=== PATIENT | male | born 1935 | race Caucasian/White ===

== ENCOUNTER 2021-02-22 01:11 | Inpatient (IN) | payer MEDICARE, OTHER ==
[~2021-02-22] VITALS: Ht 182.9 cm; Wt 99.0 kg
[2021-02-22 02:35] LABS: Basophils # (auto) 0 10 ^3/uL (0-0.2); Basophils % (auto) 0.2 % (0.0-2.0); Eosinophils # (auto) 0.2 10 ^3/uL (0-0.8); Eosinophils % (auto) 2.1 % (0.0-7.0); Hematocrit 37.1 % (41.0-53.0); Hemoglobin 12.4 g/dL (13.5-17.5); Lymphocytes # (auto) 2.2 10 ^3/uL (0.4-5.4); Lymphocytes % (auto) 22.3 % (10.0-50.0); Mean Corpuscular Hemoglobin 32.1 pg (28.0-32.0); Mean Corpuscular Hgb Conc. 33.5 g/dL (32.0-36.0); Mean Corpuscular Volume 95.6 fL (80.0-100.0); Monocytes # (auto) 0.7 10 ^3/uL (0-1.3); Monocytes % (auto) 7.4 % (0.0-12.0); Neutrophils # (auto) 6.8 10 ^3/uL (1.6-8.6); Platelet Count (auto) 187 10^3/uL (140-450); Red Blood Cells 3.88 10^6/uL (4.5-5.90); Red Cell Distribution Width 14.4 % (11.8-14.3)
[2021-02-22 02:50] LABS: INR 1.02 (0.9-1.15); Partial Thromboplastin Time 24.8 sec (23.0-31.2)
[2021-02-22 02:56] LABS: Alanine Aminotransferase 16 U/L (16-61); Albumin 2.6 g/dL (3.4-5.0); Anion Gap 12 (5-15); Aspartate Aminotransferase 16 U/L (15-37); BUN/Creatinine Ratio 12.6; Blood Alcohol < 3.0 mg/dL (0-5); Blood Urea Nitrogen 13 mg/dL (7-18); Calcium 7.2 mg/dL (8.5-10.1); Carbon Dioxide 17 mmol/L (21-32); Chloride 113 mmol/L (98-107); GFR African American 88 mL/min; GFR Non-African American 73 mL/min; Glucose 105 mg/dL (74-106); Magnesium 2.2 mg/dL (1.6-2.6); Potassium 3.5 mmol/L (3.5-5.1); Sodium 142 mmol/L (136-145)
[2021-02-22 03:09] LABS: Lactic Acid w/Reflex 6.8 mmol/L (0.4-2.0)
[2021-02-22 03:14] LABS: Alkaline Phosphatase 86 U/L (45-117); Bilirubin, Total 0.1 mg/dL (0.2-1.0)
[2021-02-22] MEDS ORDERED: PIPERACILLIN-TAZOB 3.375GM 100 ML IV ONE (06:30)
[2021-02-22] MEDS ORDERED: VANCOMYCIN PER PHARMACY 0 MG IV SCH (06:30)
[2021-02-22] MEDS ORDERED: ENOXAPARIN SOD 80 MG/0.8ML SYRINGE SC ONE (06:30)
[2021-02-22] MEDS ORDERED: SODIUM CHLORIDE 0.9% 1,000 ML IV ONE (06:30)
[2021-02-22] MEDS ORDERED: IOHEXOL 350 MG/ML 100ML IJ ONE ×2 (06:31→21:59)
[2021-02-22 06:47] LABS: Urine Bacteria MOD /hpf (None Seen); Urine Blood 2+ /uL (Negative); Urine Specific Gravity 1.013 (1.001-1.035); Urine WBC 26 /hpf (0 - 3)
[2021-02-22 07:02] LABS: Amphetamine Screen, Urine NEGATIVE (NEGATIVE); Barbiturate Scree,Urine NEGATIVE (NEGATIVE); Benzodiazephine Screen, Urine POSITIVE (NEGATIVE); Cannabinoid Screen, Urine NEGATIVE (NEGATIVE); Cocaine Screen, Urine NEGATIVE (NEGATIVE); Opiate Scree,Urine NEGATIVE (NEGATIVE); Phencyclidine Screen, Urine NEGATIVE (NEGATIVE)
[2021-02-22] MEDS ORDERED: VANCOMYCIN 1GM/250ML 250 ML IV ONE (08:00)
[2021-02-22] MEDS ORDERED: LORazepam 2MG/ML-1ML VIAL IV PRN (11:00)
[2021-02-22] MEDS ORDERED: SOD CHL 0.45% 1,000 ML IV ONE (11:00)
[2021-02-22] MEDS ORDERED: MORPHINE SULF INJ 2 MG/ML SYRINGE 1ML IV PRN (11:00)
[2021-02-22] MEDS ORDERED: NITROGLYCERIN 0.4 MG SL TAB SL PRN (11:00)
[2021-02-22] MEDS ORDERED: LORazepam 2MG/ML-1ML VIAL ONE (13:53)
[2021-02-22 13:59] VITALS: BP 121/79
[2021-02-22 16:38] VITALS: BP 128/66
[2021-02-22 20:47] LABS: Cholesterol 159 mg/dL (< 200); Triglycerides 113 mg/dL (< 150)
[2021-02-22 20:50] LABS: HDL Cholesterol 42 mg/dL (40-59); LDL Cholesterol 99 mg/dL (< 100)
[2021-02-22 20:56] LABS: Folate (Folic Acid) 5.24 ng/mL (5.38-24)
[2021-02-22 22:00] VITALS: BP 123/73
[2021-02-22] MEDS: ATORVASTATIN 20 MG TAB PO SCH (22:03)
[2021-02-22] MEDS: ENOXAPARIN SOD 80 MG/0.8ML SYRINGE SC SCH (22:04)
[2021-02-23 05:00] VITALS: BP 95/62
[2021-02-23 07:26] LABS: Basophils # (auto) 0.1 10 ^3/uL (0-0.2); Basophils % (auto) 0.5 % (0.0-2.0); Eosinophils # (auto) 0.2 10 ^3/uL (0-0.8); Hematocrit 38.9 % (41.0-53.0); Hemoglobin 13.8 g/dL (13.5-17.5); Lymphocytes # (auto) 2.8 10 ^3/uL (0.4-5.4); Lymphocytes % (auto) 26.3 % (10.0-50.0); Mean Corpuscular Hemoglobin 33.3 pg (28.0-32.0); Mean Corpuscular Hgb Conc. 35.5 g/dL (32.0-36.0); Mean Corpuscular Volume 93.7 fL (80.0-100.0); Monocytes # (auto) 1.1 10 ^3/uL (0-1.3); Monocytes % (auto) 10.2 % (0.0-12.0); Neutrophils # (auto) 6.5 10 ^3/uL (1.6-8.6); Nucleated Red Blood Cells % 0.1 %; Platelet Count (auto) 211 10^3/uL (140-450); Red Blood Cells 4.15 10^6/uL (4.5-5.90); Red Cell Distribution Width 14.2 % (11.8-14.3); White Blood Cell 10.7 10^3/uL (4.4-10.8)
[2021-02-23 07:39] LABS: Potassium 3.7 mmol/L (3.5-5.1)
[2021-02-23 07:51] LABS: Albumin 2.8 g/dL (3.4-5.0); BUN/Creatinine Ratio 12.3; Bilirubin, Total 0.5 mg/dL (0.2-1.0); Calcium 8.1 mg/dL (8.5-10.1); Magnesium 2.7 mg/dL (1.6-2.6); Total Protein 6.3 g/dL (6.4-8.2)
[2021-02-23 08:05] VITALS: BP 99/63
[2021-02-23 08:32] VITALS: BP 99/63
[2021-02-23] MEDS: ENOXAPARIN SOD 80 MG/0.8ML SYRINGE SC SCH ×2 (09:16→21:21)
[2021-02-23] MEDS: ASPirin 81 mg TAB PO SCH (09:17)
[2021-02-23 13:11] VITALS: BP 93/59
[2021-02-23] MEDS: PIPERACILLIN-TAZOB 3.375GM 100 ML IV SCH ×2 (14:30→21:20)
[2021-02-23 17:00] VITALS: BP 114/64
[2021-02-23] MEDS ORDERED: IOHEXOL 350 MG/ML 100ML IJ ONE (17:33)
[2021-02-23] MEDS: ATORVASTATIN 20 MG TAB PO SCH (21:20)
[2021-02-23] MEDS: MUPIROCIN 2% OINT 15gm or 22gm EACHNOSTRI SCH (21:31)
[2021-02-23 22:34] VITALS: BP 121/72
[2021-02-24 05:11] VITALS: BP 114/61
[2021-02-24] MEDS: PIPERACILLIN-TAZOB 3.375GM 100 ML IV SCH ×2 (05:34→13:10)
[2021-02-24 05:49] LABS: Basophils # (auto) 0.1 10 ^3/uL (0-0.2); Basophils % (auto) 0.5 % (0.0-2.0); Eosinophils # (auto) 0.4 10 ^3/uL (0-0.8); Eosinophils % (auto) 3.3 % (0.0-7.0); Hematocrit 41.8 % (41.0-53.0); Hemoglobin 14.3 g/dL (13.5-17.5); Lymphocytes % (auto) 36.8 % (10.0-50.0); Mean Corpuscular Hemoglobin 32.3 pg (28.0-32.0); Mean Corpuscular Hgb Conc. 34.2 g/dL (32.0-36.0); Mean Corpuscular Volume 94.2 fL (80.0-100.0); Monocytes # (auto) 1.1 10 ^3/uL (0-1.3); Monocytes % (auto) 9.7 % (0.0-12.0); Neutrophils # (auto) 5.4 10 ^3/uL (1.6-8.6); Neutrophils % (auto) 49.7 % (37.0-80.0); Platelet Count (auto) 204 10^3/uL (140-450); Red Blood Cells 4.44 10^6/uL (4.5-5.90); Red Cell Distribution Width 14.3 % (11.8-14.3)
[2021-02-24 06:10] LABS: BUN/Creatinine Ratio 14.4; Calcium 8.4 mg/dL (8.5-10.1); Magnesium 2.8 mg/dL (1.6-2.6)
[2021-02-24 08:20] VITALS: BP 110/76
[2021-02-24 09:00] VITALS: BP 110/76
[2021-02-24] MEDS: ASPirin 81 mg TAB PO SCH (09:17)
[2021-02-24] MEDS: ENOXAPARIN SOD 80 MG/0.8ML SYRINGE SC SCH (09:18)
[2021-02-24] MEDS: MUPIROCIN 2% OINT 15gm or 22gm EACHNOSTRI SCH (09:18)
[2021-02-24 13:00] VITALS: BP 108/69
[2021-02-24 14:01] VITALS: BP 108/69
[2021-02-24 16:32] VITALS: BP 118/64
[2021-02-24] MEDS ORDERED: MUPIROCIN 2% OINT 15gm or 22gm EACHNOSTRI SCH (22:00)
== END 2021-02-24 19:16 | disposition hospice, home (50) | DRG 280 ==
LOC: EDBD 01:11 → ER 01:11 → TELE 10:56 → TELE-EAST 13:44
PROVIDERS: ADMIT Internal Medicine; ATTEND Internal Medicine
PROC: 05HB33Z Insertion of Infusion Device into Right Basilic Vein, Percutaneous Approach (ICD-10-PCS; principal; 2021-02-23)
PROC: B54MZZA Ultrasonography of Right Upper Extremity Veins, Guidance (ICD-10-PCS; 2021-02-23)
DX: I21.4 Non-ST elevation (NSTEMI) myocardial infarction (principal); G93.41 Metabolic encephalopathy; E87.2 Acidosis; N39.0 Urinary tract infection, site not specified; G91.2 (Idiopathic) normal pressure hydrocephalus; I69.351 Hemiplegia and hemiparesis following cerebral infarction affecting right dominant side; G40.409 Other generalized epilepsy and epileptic syndromes, not intractable, without status epilepticus; G30.9 Alzheimer's disease, unspecified; F02.80 Dementia in other diseases classified elsewhere, unspecified severity, without behavioral disturbance, psychotic disturbance, mood disturbance, and anxiety; E88.09 Other disorders of plasma-protein metabolism, not elsewhere classified; R26.9 Unspecified abnormalities of gait and mobility; H53.461 Homonymous bilateral field defects, right side
CPT/HCPCS: 36415; 70450; 71045; 71275; 80048; 80053; 80061; 80307; 80320; 81001; 82550; 82607; 82746; 83605; 83735; 83880; 84443; 84484; 85025; 85379; 85610; 85730; 87040; 87081; 87086; 87088; 87426; 93005; 95819; 96365; 96372; 97163; G0378; J2543; J7060